=== PATIENT | male | born 1980 | race Caucasian/White ===

== ENCOUNTER 2019-12-02 08:54 | Observation (INO) | payer BC, SELFPAY ==
--- OUTSIDE RECORDS SUMMARY | 2019-12-02 08:56 | XMS REPORT ---
:1980 Author Organization [facility] Address [address] [place] [address] Dr. Gudino [address] [place] [id number] Care Team Providers Name Role Phone Unavailable Unavailable Unavailable Problems This patient has no known problems. Allergies, Adverse Reactions, Alerts This patient has no known allergies or adverse reactions. Medications This patient has no known medications. Procedures This patient has no known procedures. Results Test Description Test Time Test Comments Results Result [facility] e Comments CT ABDOMEN/PELVIS 2019-11-20 [facility] 19:52:[address] [id number] IMAGING REPORTPatient Name: AMANDA RYAN ADate of Service: [id number]: 39 Sex: M Order #: [id number] Room: ERSDOB: 1980 X-Ray Number: [id number] Record Number: [id number] Hospital Number: [id number] Physician: Erica BANUELOS Physician: ASHA HUNG abdomen and pelvis.History: HematuriaTechnique: Noncontrast CT images.This CT exam was performed using one or more of the following dosereduction techniques: Automated exposure control, adjustment of the MAand/or KV according to patient size or use of iterative reconstructiontechnique .Comparison: None.Findings:There is an approximately 4 mm stone at the junction the right renal pelvisand proximal right ureter. There is mild right hydronephrosis. There is anadditional nonobstructive stone in the interpolar region of the rightkidney. No evidence of an obstructive left renal stone.There is a small amount of bibasilar atelectasis.A lack of intravenous contrast limits evaluation of intra-abdominalstructur es. Noncontrast evaluation of the liver, gallbladder, pancreas,spleen and adrenal glands is grossly normal. The abdominal aorta isatherosclerotic and nonaneurysmal.The appendix is normal. No evidence of inflammatory stranding involving thecolon to suggest colitis or diverticulitis. The bladder is unremarkable.There is a bone island in the right femoral head. There is prostatecalcification.I mpression:There is a 4 mm stone at the junction of the right renal pelvis andproximal right ureter with resultant mild right hydronephrosis.Electron ically Signed By: Bill Pearl M.D., 11/20/2019 7:50 PMLegally authenticated by DELMAR FINLEY JR 2019-11-20 19:50:27 CREATINE KINASE 2019-11-20 19:01:00 Test Item Value Reference Range Interpretation Comme nts CK (test code = CK) 149 U/L 55-170 BMP, BASIC METABOLIC [id number] 19:00:00 Test Item Value Reference Range Interpretation Comments SODIUM (test code = 136 MMOL/L 137-145 L NA) K+ (test code = 3.8 MMOL/L 3.5-5.1 PLEASE NOTE NEW KSERUM) REFERENCE RANGE (S) IN EFFECT EFFECTIVE 010 - NEW ANALYZER (V ITROS 5600) CHLORIDE (test code 104 MMOL/L 98-107 = CL) CO2 (test code = 21 MMOL/L 22-30 L CO2) BUN (test code = 10 MG/DL 9-20 BUN) CREA (test code = 0.9 MG/DL 0.8-1.5 CREA) GLUCOSE (test code 101 MG/DL 70-99 H Fasting glucose = GLUCOSE) normal <100 MG/ DL- [employer] recommendation* * CALCIUM (test code 10.1 MG/DL 8.4-10.2 = CABLOOD) GFR (test code = 99 A GFR of >9 0 GFR) mL/min/1.73m2 mL/min/1.73m2 is considered norm al. [id number] 18:22:00 Test Item Value Reference Range Interpretation Comments GLUCOSE (test code = URGLU) NEGATIVE MG/DL NEG-100 BILIRUBN (test code = URBILI) NEGATIVE NEGATIVE KETONE (test code = URKET) TRACE MG/DL NEGATIVE BLOOD (test code = URBLD) LARGE UR PH (test code = URPH) 5.5 5.0-7.5 PROTEIN (test code = URPRO) 30 MG/DL NEGATIVE NITRITES (test code = URNIT) NEGATIVE NEGATIVE UROBILINGEN (test code = 1.0 EU/DL 0.2-1.0 URURO) LEUKOCYT (test code = URLEU) NEGATIVE NEGATIVE UA COLOR (test code = UA DARK YELLOW YELLOW COLOR) CLARITY (test code = CLARITY) CLOUDY CLEAR SP GRAV (test code = URSPGRAV) 1.027 1.000-1.025 H UAMICRO (test code = UAMICRO) YES WBC (test code = URWBC) 5 /HPF 0-5 RBC (test code = URRBC) >900 /HPF 0-2 H CASTS (test code = CAST) 3 /LPF 0-3 UR EPI (test code = EPI) 39 /LPF BACTERIA (test code = NEGATIVE NONE BACTERIA) [id number] 18:12:00 Test Item Value Reference Range Interpretation Comments WBC (test code = 10.6 K/UL 3.5-10.9 WBC) RBC (test code = 5.53 M/UL 4.3-5.7 RBC) HGB (test code = 15.5 G/DL 13.0-17.9 HGB) HCT (test code = 45.4 % 38-52 HCT) MCV (test code = 82.1 FL 80-98 MCV) MCH (test code = 28.0 PG 28-32 MCH) MCHC (test code = 34.1 G/DL 32.5-36.5 MCHC) RDW (test code = 12.4 % 11.5-14.5 RDW) PLT (test code = 258 K/UL 150-450 PLT) MPV (test code = 10.0 FL 7.4-10.4 MPV) MANDIFF (test code = NO MANDIFF) SCAN (test code = NO SCAN) NEUT% (test code = 70.0 % 40-75 NEUT%) LYMPH% (test code = 21.2 % 24-44 L LYMPH%) MONO% (test code = 5.9 % 0-13 MONO%) EOS% (test code = 1.7 % 0-4 EOS%) BASO % (test code = 0.8 % 0-2 BASO%) IG (test code = IG) 0 % 0-1 IG% (test code = 0.4 % 0-1 IG% = Metam yelocytes, IG%) Myelocytes, and Promyelocytes. (Immature neutr ophils not including " bands".) > 3% IG indic ates risk of sepsis NRBC% (test code = 0 /100 WBC NRBC%) ABS NEUT (test code 7.4 K/UL 1.2-7.2 H = NEUT)
[2019-12-02] MEDS ORDERED: MORPHINE 4 MG/ML SYR ONE ×2 (09:51→10:54)
[2019-12-02] MEDS ORDERED: ONDANSETRON 4 MG/2 ML VIAL ONE ×2 (09:52→13:16)
[2019-12-02] MEDS ORDERED: NA CHLORIDE 0.9% 1,000 ML ONE (09:52)
[2019-12-02 09:57] LABS: Absolute Lymphocytes (CBC) 3.3 K/uL (0.7-4.9); Hematocrit 44.9 % (39.6-49.0); Lymphocytes % 33.7 % (15.3-44.8); MPV 8.4 fL (7.6-11.3)
[2019-12-02 10:17] LABS: Albumin 4.3 g/dL (3.4-5.0); Bilirubin Direct 0.2 mg/dL (0-0.2); Bilirubin Total 0.7 mg/dL (0.2-1.0); Potassium 3.6 mmol/L (3.5-5.1); Protein, Total 7.8 g/dL (6.4-8.2)
--- NOTE | 2019-12-02 10:37 | RAD REPORT ---
EXAM DESCRIPTION: CT - Stone Protocol - 12/02/2019 10:05 am CLINICAL HISTORY: Abdominal pain. COMPARISON: None. TECHNIQUE: Computed axial tomography of the abdomen pelvis was obtained without oral or IV contrast. Lack of IV and oral contrast limits evaluation of solid organs, bowel, and vessels. Coronal reformat monae images were obtained and reviewed. All CT scans are performed using dose optimization technique as appropriate and may include automated exposure control or mA/KV adjustment according to patient size. FINDINGS: Small right renal calculi. Moderate right hydronephrosis. 5 millimeter right UPJ calculus Hounsfield unit 165 . 11 millimeter low to intermediate density mass extends off of the lower pole le ft kidney The liver, spleen, pancreas and adrenals appear grossly normal There is no evidence of diverticulitis. The appendix appears normal Small left inguinal hernias contain fat IMPRESSION: 5 millimeter right UPJ calculus resulting in moderate right hydronephrosis 11 millimeter low to intermediate density mass left kidney probably benign complex cyst. However, it is recommended that the patient have a nonemergent renal ultrasound for confirmation
[2019-12-02] MEDS ORDERED: FENTANYL CITR 100 MCG/2 ML ONE ×2 (13:02→13:15)
[2019-12-02] MEDS ORDERED: propofoL 200 MG/20 ML VIAL IV ONE (13:16)
[2019-12-02] MEDS ORDERED: MIDAZOLAM HCL 2 MG/2 ML INJ ONE (13:16)
[2019-12-02] MEDS ORDERED: LIDOCAINE 1% MPF 5 ML VIAL ONE (13:16)
[2019-12-02] MEDS ORDERED: dexAMETHasone 10 MG/ML VIAL ONE (13:17)
[2019-12-02 13:19] LABS: Urine Blood 3+ (NEG); Urine Glucose NEGATIVE (NEG); Urine Protein NEGATIVE (NEG); Urine Specific Gravity 1.025 (1.005-1.030); Urine pH 5.5 (5.0-7.0)
[2019-12-02] MEDS ORDERED: ACETAMINOPHEN 500 MG TAB PO PRN (13:29)
[2019-12-02] MEDS ORDERED: Ringers Lactate 1,000 ML IV ONE (13:30)
[2019-12-02] MEDS ORDERED: GENTAMICIN SULF 80 MG/2ML INJ ONE ×2 (13:34→13:55)
[2019-12-02] MEDS ORDERED: Mastisol Adhesive Liq ONE (14:02)
[2019-12-02] MEDS: MEPERIDINE HCL 50 MG/ML ONE ×2 (14:25→14:30)
--- NOTE | 2019-12-02 14:35 | RAD REPORT ---
EXAM DESCRIPTION: RAD - Urethrocystogrphy Retrograde - 12/02/2019 2:24 pm CLINICAL HISTORY: ICD N 20.0 ureteral calculus FINDINGS: 9 fluoroscopic spot images obtained. Fluoroscopy time 0.25 minutes Right ureter was cannulated and contrast administered. Subsequently a lureteral stent was placed. Exa mination was performed by
[2019-12-02] MEDS: NA CHLORIDE 0.9% 1,000 ML IV SCH ×2 (15:04→22:58)
[2019-12-02] MEDS: CEFTRIAXONE/SWI 1gm 1 GM/10 ML SYR IVP SCH (15:06)
[2019-12-02] MEDS: MORPHINE 2 MG/ML SYR IV PRN ×3 (15:11→23:05)
[2019-12-02 15:18] VITALS: BMI 33.2
[2019-12-02] MEDS: OXYBUTYNIN ER 5 MG TAB PO SCH (18:00)
[2019-12-02] MEDS: ONDANSETRON 4 MG/2 ML VIAL IV PRN ×2 (18:44→23:04)
--- NOTE | 2019-12-02 19:27 | CON ---
History Of Present Illness: 39-year-old male presenting with sudden onset right flank pain. He has a history of kidney stones for years. He has passed most of them. CT scan revealed a 5 mm right UPJ stone with moderate hydronephrosis. A small right renal calculi 11 mm to low intermediate density m ass extending off the lower pole of the left kidney, possibly a cyst. Hounsfield unit was read out a s 165? Not sure about that. His pain is intractable to IV pain medication from the emergency room. He was admitted for cysto stent placement. He was given all general information, alternatives, and risks and wishes to proceed. Past Medical History: Kidney stones. Past Surgical History: None. Allergies: NO KNOWN DRUG ALLERGIES. Medications: None. Review of Systems: Pretty much as mentioned above. Physical Examination: HEENT: Negative. Atraumatic, normocephalic. Pulmonary: Negative. Chest clear. Cardiac: Negative. S1, S2. GI: Negative. Vital Signs: 96.8, 57, 18, 111/73, and 98% saturation. Abdomen: Soft, nontender. Extremities: Legs, normal range of motion. Imaging: CT scan reviewed. Laboratory Data: White count normal at 9.9, H and H 12 and 45, platelet 265. Chemistry, sodium 138, potassium 3.6, chloride 105, carbon dioxide 24, BUN 15, creatinine 1.1, GFR 76, glucose 146. No UAs . Assessment: 5 mm right ureteropelvic junction stone. Plan: Plan is for cystoscopy, retrograde; stent placement and later on possible ESWL. PB/MODL Voice ID: [id number] Report ID: [id number]
--- NOTE | 2019-12-02 20:18 | OP ---
Surgeon: Darinel Jane MD Preoperative Diagnosis: 5 mm right ureteropelvic junction stone. Postoperative Diagnosis: 5 mm right ureteropelvic junction stone. Procedure Performed: Cystoscopy, right double-J stent placement, 6-Surinamese x 28 cm with string left a ttached to the penis. Complications: None. Indication: A pleasant 39-year-old gentleman who developed sudden right onset flank pain this ingrid portillo, came to the ER where he was diagnosed with a high-grade obstruction, intractable pain through IV p ain medication. Given all the general information, alternatives, and risks and wishes to proceed wit h a cysto stent placement. He was admitted to the hospitalist service. Description Of Procedure: The patient was properly identified, taken to the operative suite. He rec eived preoperative antibiotics. He received general anesthesia. Legs were placed in the supine lith otomy position. He was prepped and draped. We used a 21-Surinamese cystoscope and 30-degree lens and sc oped the urethra and bladder. No abnormalities were found in the urethra, prostate, nor bladder. Re trograde pyelogram was performed showing a stone at the level of L2-L3 with hydronephrosis behind the stone. A guidewire was passed into the renal pelvis. The ureter was measured at about 27 cm, we we nt ahead and placed a 20 cm double-J stent placed and string was left attached to the penis. The jacob dder was emptied, scope removed, and the patient was awoken, went to the recovery room in stable cond ition. Plan: Plan is obtain a KUB and possibly do an ESWL later. PB/MODL Voice ID: [id number] Report ID: [id number]
--- NOTE | 2019-12-02 20:27 | RAD REPORT ---
EXAM DESCRIPTION: US - Renal Ultrasound-Complete - 12/02/2019 8:03 pm CLINICAL HISTORY: Renal mass/abdominal pain COMPARISON: December 02, 2019 cat scan FINDINGS: The right kidney measures 13 cm with a normal echotexture. Hydronephrosis appears resolved The left kidney measures 13 cm with a normal echotexture. 1.1 centimeter hypoechoic mass extends off of lower pole left kidney No gross abnormality of bladder IMPRESSION: Right hydronephrosis resolved 1.1 centimeter hypoechoic mass extends off of the lower pole of the left kidney probably a benign com plex cyst. Follow up renal ultrasound in 6 months recommended to assess stability
[2019-12-02] MEDS ORDERED: KETOROLAC 30 MG/ML INJ IV ONE (21:57)
[2019-12-02] MEDS ORDERED: CODEINE 30MG/APAP 300MG TAB PO ONE (21:58)
--- NOTE | 2019-12-02 22:51 | HP ---
Date of Admission: 12/02/2019 Chief Complaint: Right flank pain, fever, chills. Primary Care Physician: Out of town. Consultants: Dr. Jane, Urology. History Of Present Illness: Patient is a 39-year-old male with no significant past medical history, comes in with sudden onset of right flank pain that started overnight. No alleviating factors, no ag gravating factors. Patient did report some associated nausea. No vomiting. Did have some fevers an d chills. Has had decreased urinary output. He does admit to previous history of kidney stones. Hugo pepper came into the ER for further evaluation. Symptoms are constant, moderate, progressively worsen ing. In the ER, his workup revealed normal white blood cell count. Kidney function slightly diminis hed. 3+ blood in the urine. CT scan of the abdomen showed a 5 mm UPJ stone with hydronephrosis and 11 mm mass on the left kidney, probably benign complex cyst. Patient was given IV fluid bolus, pain medications, morphine and fentanyl and antiemetics. Patient was referred for admission. Dr. Buck genao Urology was consulted by the ED, recommended stent placement in the OR. When seen in the ER, he was awake, alert, oriented x3, in some mild distress. Past Medical History: None. Surgical History: None. Allergies: NO KNOWN DRUG ALLERGIES. Medications: Patient does not take any medications at home. Social History: Patient denies any tobacco use, alcohol use, or illicit drug use. The patient is se parated, has a son, lives out of town. Family History: The patient reports cancer both in the father and the brother. Review of Systems: Ten-point system reviewed, negative except as per HPI. Physical Examination: Vital Signs: Temperature 96.8, heart rate 63, blood pressure 126/61, respirations 20, O2 96% on room air. General: Awake, alert, oriented x3, obese male in some mild distress due to pain. HEENT: Normocephalic, atraumatic. PERRLA, EOMI. Conjunctivae anicteric. Neck: Supple. No JVD. Trachea midline. CV: S1, S2. Regular rate and rhythm. Peripheral pulses present. Respiratory: Moving air well bilaterally. No wheezing or stridor. No use of accessory muscles. Gastrointestinal: Abdomen is soft, nontender, nondistended. Positive bowel sounds. Patient does michel ve some right flank tenderness. Extremities: No clubbing, cyanosis, or edema. No calf tenderness. Neuro: Cranial nerves 2 through 12 intact grossly. No focal neurological deficit. Speech is normal . Psych: Mood is mood is okay. Affect is full. Insight and judgment are good. Skin: No rashes. Normal skin turgor. Laboratory Data: Sodium 138, potassium 3.6, chloride 105, CO2 of 24, BUN 15, creatinine 1.08, glucos e 146, calcium 9.3, GFR 76. WBC 9.9, H and H 15.2 and 44.9, platelets 265. UA shows 2+ ketones and 3+ blood; nitrite, leukocyte esterase negative. Microscopy is pending. CT scan of the abdomen and p denis personally reviewed shows a 5 mm right UPJ calculus resulting in moderate right hydronephrosis, 11 mm, low to intermediate density mass left kidney, probably benign complex cyst. Assessment And Plan: 39-year-old male with 1.Right Ureteropelvic junction calculus with obstruction. We will start on IV fluids. Patient will need stent placement. Dr. Jane has been consulted. We will start on empiric antibiotics. UA micr oscopy is pending. 2.Right hydronephrosis secondary to above. We will monitor urine output closely after stent placeme nt. 3.Left complex renal cyst. Patient will need a renal ultrasound. 4.Obesity. 5.Deep venous thrombosis prophylaxis with SCDs. No chemical anticoagulation due to procedure. Plan: Admit patient to Med-Surg, place as observation. Likely discharge in the next 24 to 48 hours depending on clinical improvement. /RAMIRO Voice ID: [id number]
[2019-12-03] MEDS: MORPHINE 2 MG/ML SYR IV PRN (04:04)
[2019-12-03] MEDS ORDERED: TAMSULOSIN 0.4 MG SR CAP PO ONE (04:34)
[2019-12-03 05:59] LABS: Absolute Lymphocytes (CBC) 1.5 K/uL (0.7-4.9); Basophils % 0.2 % (0-1.3); Hematocrit 38.7 % (39.6-49.0); Lymphocytes % 12.2 % (15.3-44.8); MPV 8.6 fL (7.6-11.3); RBC Red Blood Cell Count 4.75 M/uL (4.33-5.43)
[2019-12-03] MEDS: NA CHLORIDE 0.9% 1,000 ML IV SCH (06:00)
[2019-12-03 06:11] LABS: Potassium 4.9 mmol/L (3.5-5.1)
[2019-12-03] MEDS ORDERED: Ringers Lactate 1,000 ML IV ONE (07:45)
[2019-12-03] MEDS ORDERED: MIDAZOLAM HCL 2 MG/2 ML INJ ONE (07:53)
[2019-12-03] MEDS ORDERED: propofoL 200 MG/20 ML VIAL IV ONE (07:53)
[2019-12-03] MEDS ORDERED: FENTANYL CITR 100 MCG/2 ML ONE (07:53)
[2019-12-03] MEDS ORDERED: LIDOCAINE 1% MPF 5 ML VIAL ONE (07:54)
[2019-12-03] MEDS ORDERED: ONDANSETRON 4 MG/2 ML VIAL ONE (07:54)
[2019-12-03] MEDS: CEFTRIAXONE/SWI 1gm 1 GM/10 ML SYR IVP SCH (08:09)
[2019-12-03] MEDS ORDERED: Mastisol Adhesive Liq ONE (08:20)
[2019-12-03] MEDS ORDERED: KETOROLAC 30 MG/ML INJ ONE (08:20)
[2019-12-03] MEDS: OXYBUTYNIN ER 5 MG TAB PO SCH ×2 (08:22→10:38)
--- NOTE | 2019-12-03 08:28 | RAD REPORT ---
EXAM DESCRIPTION: RAD - Urography Retrograde - 12/03/2019 8:20 am FINDINGS: There were 12 fluoroscopic images acquired during fluoroscopic assisted placement or repos itioning of a right ureteral stent. No suspicious or unexpected findings. Fluoro time was 58 seconds.
[2019-12-03 09:32] VITALS: O2SAT 95
--- NOTE | 2019-12-03 09:51 | RAD REPORT ---
EXAM DESCRIPTION: RAD - Abdomen 1 View (KUB) - 12/03/2019 5:00 am CLINICAL HISTORY: kidney stones COMPARISON: Stone Protocol dated 12/02/2019 FINDINGS: Double pigtail stent is in place in the right collecting system in good position. Previous ly detailed 5 mm obstructing calculus near the right UPJ is not clearly seen on this examination. Bowel gas pattern is nonspecific. No suspicious calcifications. No significant bony findings IMPRESSION: Double pigtail stent of the right collecting system in good position. Previously detailed 5 mm obstructing calculus is not identifiable along the course of the stent.
[2019-12-03 12:00] VITALS: BP 122/62; TEMP 97
--- NOTE | 2019-12-03 18:53 | ER ---
Nurse's Notes [facility] Name: Jung Morfin Age: 39 yrs Sex: Male : 1980 Arrival Date: 12/02/2019 Time: 08:55 Bed 8 Private MD: Diagnosis: Right 5 mm UPJ with moderate right hydronephrosis Presentation: 12/01 09:51 Chief complaint: Patient states: R flank/LQ pain that started at 0400, N/V, hx of ph kidney stones, denies fever or diarrhea. Coronavirus screen: Patient denies a cough. Patient denies shortness of breath or difficulty breathing. Patient denies measured and/or subjective temperature greater than 100.4F prior to today's visit. Patient denies travel on a cruise ship or to a country the [facility] currently lists as an affected area. Patient denies contact with known and/or suspected case of COVID-19. Ebola Screen: No symptoms or risks identified at this time. Initial Sepsis Screen: Does the patient meet any 2 criteria? No. Patient's initial sepsis screen is negative. Does the patient have a suspected source of infection? No. Patient's initial sepsis screen is negative. Risk Assessment: Do you want to hurt yourself or someone else? Patient reports no desire to harm self or others. 09:51 Method Of Arrival: Ambulatory ph 09:51 Acuity: TELLY 3 ph Historical: - Allergies: 09:53 No Known Allergies; ph - Home Meds: 09:53 None [Active]; ph - PMHx: 09:53 Kidney stones; ph - Immunization history:: Adult Immunizations unknown. - Social history:: Smoking status: Patient denies any tobacco usage or history of. Screenin:34 Abuse screen: Denies threats or abuse. Denies injuries from another. Nutritional ph screening: No deficits noted. Tuberculosis screening: No symptoms or risk factors identified. Fall Risk None identified. Assessment: 09:53 General: Appears in no apparent distress. uncomfortable, well groomed, Behavior is ph cooperative, appropriate for age, restless. Pain: Complains of pain in anterior aspect of right lateral abdomen and right lower quadrant Pain currently is 10 out of 10 on a pain scale. Neuro: Level of Consciousness is awake, alert, obeys commands, Oriented to person, place, time, situation. Cardiovascular: Capillary refill < 3 seconds in bilateral fingers Patient's skin is warm and dry. Respiratory: Airway is patent Respiratory effort is even, unlabored. GI: Abdomen is round non-distended, Bowel sounds present X 4 quads. Abd is soft X 4 quads Reports lower abdominal pain, nausea, vomiting. : Reports pain in right flank(s), lower quadrant(s). Derm: Skin is intact, is healthy with good turgor, Skin is pink, warm \T\ dry. Musculoskeletal: Circulation, motion, and sensation intact. Range of motion: intact in all extremities. 11:00 Reassessment: Patient appears in no apparent distress at this time. Patient and/or ph family updated on plan of care and expected duration. Pain level reassessed. Patient is alert, oriented x 3, equal unlabored respirations, skin warm/dry/pink. 12:01 Reassessment: Patient appears in no apparent distress at this time. Patient and/or ph family updated on plan of care and expected duration. Pain level reassessed. Patient is alert, oriented x 3, equal unlabored respirations, skin warm/dry/pink. Pt appears more comfortable, lying in bed texting on phone, VSS, awaiting urine sample, pt provided w/ water. 13:01 Reassessment: Patient appears in no apparent distress at this time. Patient and/or ph family updated on plan of care and expected duration. Pain level reassessed. Patient is alert, oriented x 3, equal unlabored respirations, skin warm/dry/pink. Pt taken via wheelchair to OR for stent placement. Vital Signs: 09:46 BP 126 / 61; Pulse 63; Resp 20; Temp 96.8(TE); Pulse Ox 96% ; sv 10:50 BP 123 / 68; Pulse 60; Resp 18; Pulse Ox 97% on R/A; ph 12:05 BP 114 / 73; Pulse 53; Resp 18; Pulse Ox 98% ; Pain 3/10; ph 12:58 BP 111 / 73; Pulse 57; Resp 18; Pulse Ox 98% ; sv ED Course: 08:55 Patient arrived in ED. as 09:10 Lg Vaughn MD is Attending Physician. kdr 09:33 Zahira Vides RN is Primary Nurse. ph 09:45 Initial lab(s) drawn, by me, sent to lab. Inserted saline lock: 20 gauge in right ph antecubital area, using aseptic technique. Blood collected. 09:51 Patient has correct armband on for positive identification. Bed in low position. Call light in reach. Pulse ox on. NIBP on. 09:52 Arm band placed on. sv 09:53 Triage completed. ph 10:05 CT Stone Protocol In Process Unspecified. EDMS 10:05 CT completed. Patient tolerated procedure well. Patient moved back from CT. bq 12:34 Hanh Smith MD is Hospitalizing Provider. kdr 13:02 No provider procedures requiring assistance completed. Patient admitted, IV remains in ph place. Administered Medications: 09:50 Drug: NS 0.9% 1000 ml Route: IV; Rate: 1 bolus; Site: right antecubital; ph 10:50 Follow up: Response: No adverse reaction; IV Status: Completed infusion; IV Intake: ph 1000ml 09:50 Drug: Zofran (Ondansetron) 4 mg Route: IVP; Site: right antecubital; ph 12:06 Follow up: Response: No adverse reaction; Nausea is decreased ph 09:52 Drug: morphine 4 mg Route: IVP; Site: right antecubital; ph 10:15 Follow up: Response: No adverse reaction; Pain is decreased; RASS: Alert and Calm (0) ph 10:53 Drug: morphine 4 mg Route: IVP; Site: right antecubital; ph 11:15 Follow up: Response: No adverse reaction; Pain is decreased; RASS: Alert and Calm (0) ph 12:56 Drug: fentaNYL (PF) 50 mcg Route: IVP; Site: right antecubital; sv 13:02 Follow up: Response: No adverse reaction ph Intake: 10:50 IV: 1000ml; Total: 1000ml. ph Outcome: 12:38 Decision to Hospitalize by Provider. kdr 13:02 Admitted to OR accompanied by nurse, via wheelchair, with chart. ph 13:02 Condition: stable 13:02 Instructed on the need for admit. 13:03 Patient left the ED. ph Signatures: Dispatcher [employer] Fernanda Quinn RN RN Lg Vaughn MD MD kdr Quilty, Betty bq Martinez, Amelia as Hall, Patricia, RN RN ph
--- NOTE | 2019-12-03 18:54 | EDPHYS ---
Physician Documentation [facility] Name: Jung Morfin Age: 39 yrs Sex: Male : 1980 Arrival Date: 12/02/2019 Time: 08:55 Bed 8 Private MD: ED Physician Lg Vaughn HPI: 12/01 10:32 This 39 yrs old Male presents to ER via Ambulatory with complaints of kdr Abdominal Pain, Vomiting. 10:33 The patient presents with abdominal pain in the right upper quadrant, Right flank. kdr Onset: The symptoms/episode began/occurred suddenly, at 04:00. The symptoms do not radiate. Associated signs and symptoms: Pertinent positives: nausea and vomiting, Pertinent negatives: blood in stools, chest pain, constipation, palpitations, shortness of breath, testicular pain, vomiting blood. The symptoms are described as constant, sharp, stabbing. Modifying factors: The symptoms are alleviated by nothing, the symptoms are aggravated by nothing. Severity of pain: At its worst the pain was severe incapacitating just prior to arrival, in the emergency department the pain is unchanged. The patient has not experienced similar symptoms in the past. The patient has not recently seen a physician. Historical: - Allergies: 09:53 No Known Allergies; ph - Home Meds: 09:53 None [Active]; ph - PMHx: 09:53 Kidney stones; ph - Immunization history:: Adult Immunizations unknown. - Social history:: Smoking status: Patient denies any tobacco usage or history of. ROS: 10:33 Constitutional: Negative for fever, chills, and weight loss, Eyes: Negative for injury, kdr pain, redness, and discharge, ENT: Negative for injury, pain, and discharge, Neck: Negative for injury, pain, and swelling, Cardiovascular: Negative for chest pain, palpitations, and edema, Respiratory: Negative for shortness of breath, cough, wheezing, and pleuritic chest pain, Back: Negative for injury and pain, : Negative for injury, bleeding, discharge, and swelling, MS/Extremity: Negative for injury and deformity, Skin: Negative for injury, rash, and discoloration, Neuro: Negative for headache, weakness, numbness, tingling, and seizure activity. Psych: Negative for depression, anxiety, suicide ideation, homicidal ideation, and hallucinations, Allergy/Immunology: Negative for hives, rash, and allergies, Endocrine: Negative for neck swelling, polydipsia, polyuria, polyphagia, and marked weight changes, Hematologic/Lymphatic: Negative for swollen nodes, abnormal bleeding, and unusual bruising. 10:33 Abdomen/GI: Positive for abdominal pain, nausea and vomiting, Negative for diarrhea, constipation, abdominal cramps, abdominal distension, black/tarry stool, rectal pain, rectal bleeding, bowel incontinence, flatulence. Exam: 10:33 Constitutional: This is a well developed, well nourished patient who is awake, alert, kdr and in moderate to severe distress. Head/Face: Normocephalic, atraumatic. Eyes: Pupils equal round and reactive to light, extra-ocular motions intact. Lids and lashes normal. Conjunctiva and sclera are non-icteric and not injected. Cornea within normal limits. Periorbital areas with no swelling, redness, or edema. Neck: Trachea midline, no thyromegaly or masses palpated, and no cervical lymphadenopathy. Supple, full range of motion without nuchal rigidity, or vertebral point tenderness. No Meningismus. Chest/axilla: Normal chest wall appearance and motion. Nontender with no deformity. No lesions are appreciated. Cardiovascular: Regular rate and rhythm with a normal S1 and S2. No gallops, murmurs, or rubs. Normal PMI, no JVD. No pulse deficits. Respiratory: Lungs have equal breath sounds bilaterally, clear to auscultation and percussion. No rales, rhonchi or wheezes noted. No increased work of breathing, no retractions or nasal flaring. Skin: Warm, dry with normal turgor. Normal color with no rashes, no lesions, and no evidence of cellulitis. MS/ Extremity: Pulses equal, no cyanosis. Neurovascular intact. Full, normal range of motion. Neuro: Awake and alert, GCS 15, oriented to person, place, time, and situation. Cranial nerves II-XII grossly intact. Motor strength 5/5 in all extremities. Sensory grossly intact. Cerebellar exam normal. Normal gait. Psych: Awake, alert, with orientation to person, place and time. Behavior, mood, and affect are within normal limits. 10:33 Abdomen/GI: Inspection: abdomen appears normal, Bowel sounds: active, all quadrants, Palpation: soft, mild abdominal tenderness, rebound tenderness, is not appreciated. Vital Signs: 09:46 BP 126 / 61; Pulse 63; Resp 20; Temp 96.8(TE); Pulse Ox 96% ; sv 10:50 BP 123 / 68; Pulse 60; Resp 18; Pulse Ox 97% on R/A; ph 12:05 BP 114 / 73; Pulse 53; Resp 18; Pulse Ox 98% ; Pain 3/10; ph 12:58 BP 111 / 73; Pulse 57; Resp 18; Pulse Ox 98% ; sv MDM: 12:38 Patient medically screened. kdr 12:38 Data reviewed: vital signs, nurses notes, lab test result(s), radiologic studies. kdr Counseling: I had a detailed discussion with the patient and/or guardian regarding: the historical points, exam findings, and any diagnostic results supporting the discharge/admit diagnosis, lab results, radiology results, the need for further work-up and treatment in the hospital. Physician consultation: Darinel Jane MD regarding consult, patient's condition, need to evaluate the patient as soon as possible, and will see patient shortly. 12/01 09:12 Order name: Basic Metabolic Panel; Complete Time: 10:23 [facility] 12/01 09:12 Order name: CBC with Diff; Complete Time: : [facility] 12/01 09:12 Order name: Hepatic Function; Complete Time: : [facility] 12/01 09:12 Order name: Lipase; Complete Time: : [facility] 12/01 09:41 Order name: CT Stone Protocol; Complete Time: 10:44 [facility] 12/01 09:12 Order name: IV Saline Lock; Complete Time: : [facility] 12/01 09:12 Order name: Labs collected and sent; Complete Time: : [facility] 12/01 10:23 Order name: Urine Dipstick-Ancillary (obtain specimen); Complete Time: 13:00 kdr Administered Medications: 09:50 Drug: NS 0.9% 1000 ml Route: IV; Rate: 1 bolus; Site: right antecubital; ph 10:50 Follow up: Response: No adverse reaction; IV Status: Completed infusion; IV Intake: ph 1000ml 09:50 Drug: Zofran (Ondansetron) 4 mg Route: IVP; Site: right antecubital; ph 12:06 Follow up: Response: No adverse reaction; Nausea is decreased ph 09:52 Drug: morphine 4 mg Route: IVP; Site: right antecubital; ph 10:15 Follow up: Response: No adverse reaction; Pain is decreased; RASS: Alert and Calm (0) ph 10:53 Drug: morphine 4 mg Route: IVP; Site: right antecubital; ph 11:15 Follow up: Response: No adverse reaction; Pain is decreased; RASS: Alert and Calm (0) ph 12:56 Drug: fentaNYL (PF) 50 mcg Route: IVP; Site: right antecubital; sv 13:02 Follow up: Response: No adverse reaction ph Disposition: 12/02/19 12:38 Hospitalization ordered by Hanh Smith for Observation. Preliminary diagnosis is Right 5 mm UPJ with moderate right hydronephrosis. - Bed requested for Telemetry/MedSurg (observation). - Status is Observation. ph - Condition is Fair. - Problem is new. - Symptoms have improved. Signatures: Dispatcher [employer] EDFernanda Burnett RN RN sv Rittger, Kevin, MD MD kdr Zahira Vides RN RN ph Corrections: (The following items were deleted from the chart) 13:03 12:38 Hospitalization Ordered by Hanh Smith MD for Observation. Preliminary diagnosis ph is Right 5 mm UPJ with moderate right hydronephrosis. Bed requested for Telemetry/MedSurg (observation). Status is Observation. Condition is Fair. Problem is new. Symptoms have improved. kdr
--- NOTE | 2019-12-04 00:53 | DS ---
Date of Discharge: 12/03/2019 Consultants: Dr. Jane with Urology. Procedures: 12/02/2019, stent and double-J stent placement and cystoscopy. On 12/03/2019, removal o f double-J stent and insertion of single J-stent, cystoscopy. Discharge Diagnoses: 1.Right ureteropelvic junction calculus with obstruction. 2.Right hydronephrosis secondary to above. 3.Left complex renal cyst. Followup renal ultrasound in 6 months. 4.Obesity, BMI of 33. Hospital Course: Patient is a 39-year-old male with no significant past medical history other than o besity comes in with right-sided flank pain, was found to have UPJ calculus with obstruction on CT sc an. Dr. Jane with Urology was consulted and patient was taken to the OR for cystoscopy and double-J stent. Patient's hydronephrosis improved. He did have an incidental finding of complex renal cyst on the left, which was evaluated further with ultrasound and the recommendations were to have repeat renal ultrasound in 6 months. He was counseled regarding his obesity and to have diet and exercise r egimen change. Overall, patient did well over the course of the hospital stay. He was started on IV fluids and IV antibiotics. Patient's repeat KUB did not show the stone. Patient was then cleared f or discharge. He did have a significant amount of pain following the double-J stent placement and he was likely having significant amount of irritation from the stent in the bladder. Therefore, Dr. David freitas took the patient back to the OR, double-J stent was removed and single-J stent was placed. Patie nt felt significantly better afterwards. Patient was then discharged home in a stable condition. He does live out of town, however is close by it is about 3 hours away has family and states that he ca n come back to follow up with Dr. Jane and has seen Dr. Jane in the past. He is also to follow up with his primary care physician in 2-3 days. Return to ER for worsening condition. Diet: Regular calorie reduced diet. Activities: Ad darian. However, no driving or operating heavy machinery while on narcotics. Physical Examination: General: Awake, alert, oriented x3, obese male. CV: S1, S2. Respiratory: Moving air well bilaterally. Abdomen: Soft, nontender, nondistended. Positive bowel sounds. Extremities: No clubbing, cyanosis, or edema. Neurologic: Nonfocal. Medications: As per medication reconciliation list. SA/MODL Voice ID: [id number] Report ID: [id number]
== END 2019-12-03 11:10 | disposition home or self-care (01) ==
LOC: ER 08:54 → ERHOLD 13:06 → 2ND 13:37
PROVIDERS: ADMIT Family Medicine; ATTEND Family Medicine
PROC: 0T768DZ Dilation of Right Ureter with Intraluminal Device, Via Natural or Artificial Opening Endoscopic (ICD-10-PCS; principal; 2019-12-02 14:00)
PROC: 0T768DZ Dilation of Right Ureter with Intraluminal Device, Via Natural or Artificial Opening Endoscopic (ICD-10-PCS; 2019-12-03)
PROC: 0TP98DZ Removal of Intraluminal Device from Ureter, Via Natural or Artificial Opening Endoscopic (ICD-10-PCS; 2019-12-03)
DX: N13.2 Hydronephrosis with renal and ureteral calculous obstruction (principal); N28.1 Cyst of kidney, acquired; E66.9 Obesity, unspecified; Z68.33 Body mass index [BMI] 33.0-33.9, adult
CPT/HCPCS: 36415; 51610; 74018; 74176; 74420; 74450; 76377; 76770; 80048; 80076; 81003; 83690; 85025; 94760; 96361; 96374; 96375; 99285; G0378; J0696; J1100; J1580; J2175; J2250; J2270; J2405; J2704; J3010; J7030; J7120